=== PATIENT | female | born 2000 | race Caucasian/White ===

== ENCOUNTER 2020-05-31 20:29 | Observation (INO) ==
[2020-05-31 21:10] LABS: Basophils % 0.2 %; Eosinophils # 0.1 K/mcL (0.0-0.6); Eosinophils % 0.8 %; Hematocrit 41.9 % (35.3-44.9); Hemoglobin 12.8 g/dL (11.5-15.4); Immature Granulocytes % 0.5 % (0-4); Lymphocytes # 3.5 K/mcL (0.6-4.6); Lymphocytes % 23.7 %; Mean Corpuscular HGB Conc 30.5 g/dL (31.6-35.5); Mean Corpuscular Hemoglobin 24.2 pg (28.0-33.3); Mean Corpuscular Volume 79.1 fL (83.0-100.0); Mean Platelet Volume 10.7 fL (9.4-12.4); Monocytes # 0.9 K/mcL (0.0-1.3); Monocytes % 6.1 %; Neutrophils # 10.2 K/mcL (1.6-8.9); Platelet Count 414 K/mcL (140-400); Red Cell Distribution Width 14.7 % (11.5-14.5); Segmented Neutrophils % 68.7 %; White Blood Count 14.8 K/mcL (4.3-11.1)
[2020-05-31 21:15] LABS: Bilirubin,Urine Negative (Negative); Blood,Urine Negative (Negative); Clarity,Urine Clear (Clear); Color,Urine Yellow (Yellow); Glucose,Urine (UA) Normal (Normal); Ketones,Urine 10 mg/dL (Negative); Leukocyte Esterase,Urine Negative (Negative); Mucus,Urine Few per lpf (None-Few); Nitrite,Urine Negative (Negative); PH,Urine 6.5 pH Units (5.0-8.0); Protein,Urine 30 mg/dL (Neg-Trace); RBC,Urine 0-3 per hpf (0-3); Specific Gravity,Urine > 1.030 (1.010-1.025); Squamous Epithelial Cell,Urine Few per hpf (None-Few); WBC,Urine 0-3 per hpf (0-3)
[2020-05-31 21:18] LABS: Estimated Average Glucose 123 mg/dl
[2020-05-31 21:29] LABS: Acetaminophen < 10 mcg/mL (10-20); BUN/Creatinine Ratio 19 (6-26); Blood Urea Nitrogen 15 mg/dL (6-20); Calcium 9.5 mg/dL (8.6-10.3); Carbon Dioxide 23 mEq/L (23-29); Chloride 103 mEq/L (98-107); Chol/HDL Ratio 3.6 (0-4.9); Cholesterol 151 mg/dL (< 200); Ethanol < 10 mg/dL (Less than 10); Glucose 121 mg/dL (70-105); HDL Cholesterol 42 mg/dL (40-59); LDL Cholesterol,Calculated 83 mg/dL (< 100); Osmolality,Calculated 284 (280-300); Potassium 3.6 mEq/L (3.5-5.1); Salicylate < 2.5 mg/dL (15.0-30.0); Sodium 136 mEq/L (136-145); Triglycerides 131 mg/dL (< 150); eGFR For African Americans > 60; eGFR For Non-African Americans > 60
[2020-05-31 21:36] LABS: Amphetamine Screen,Urine Negative ng/mL (Cutoff=1000); Barbiturate Screen,Urine Negative ng/mL (Cutoff=200); Benzodiazepines Screen,Urine Negative ng/mL (Cutoff=200); Cannabinoid Screen,Urine Negative ng/mL (Cutoff = 50); Cocaine Screen,Urine Positive ng/mL (Cutoff= 300); Opiate Screen,Urine Negative ng/mL (Cutoff=300); Phencyclidine Screen,Urine Negative ng/mL (Cutoff=25)
[2020-06-01] MEDS ORDERED: haloperidoL 5 MG TABLET PO PRN (02:07)
[2020-06-01] MEDS ORDERED: Haloperidol Lactate 5 MG/ML VIAL IM PRN (02:07)
[2020-06-01] MEDS ORDERED: traZODone 50 MG TABLET PO PRN (02:07)
[2020-06-01] MEDS ORDERED: *HR* LORazepam 1 MG TABLET PO PRN (02:07)
[2020-06-01] MEDS ORDERED: Mag Hydrox/Al Hydrox/Simeth 30 ML UDC PO PRN (02:07)
[2020-06-01] MEDS ORDERED: *HR* LORazepam 2 MG/ML VIAL IM PRN (02:07)
[2020-06-01] MEDS ORDERED: MOM Conc 10 ML UD.LIQ PO PRN (02:07)
[2020-06-01] MEDS ORDERED: hydrOXYzine pamoate 25 MG CAPSULE PO PRN (02:07)
[2020-06-01] MEDS: Acetaminophen 325 MG TABLET PO PRN ×2 (02:52→12:34)
[2020-06-01] MEDS ORDERED: Topiramate 25 MG TABLET PO SCH (09:00)
[2020-06-01] MEDS ORDERED: FLUoxetine 20 MG CAPSULE PO SCH (09:00)
[2020-06-02] MEDS: Acetaminophen 325 MG TABLET PO PRN (10:55)
[2020-06-02 11:33] VITALS: BP 134/82
== END 2020-06-02 11:10 | disposition home or self-care (01) ==
LOC: EMEROOARM 20:29 → 1ANU 20:29
PROVIDERS: ADMIT Psychiatry & Neurology Psychiatry; ATTEND Psychiatry & Neurology Psychiatry